=== PATIENT | male | born 1990 | race African-American/Black ===

== ENCOUNTER 2017-12-30 20:25 | Emergency (ER) | payer SELFPAY ==
[~2017-12-30] VITALS: Ht 188 cm; Wt 73.0 kg
[2017-12-30] MEDS ORDERED: ACETAMINOPHEN 500MG TABLET PO ONE (22:30)
[2017-12-30] MEDS ORDERED: IBUPROFEN 600MG TABLET PO ONE (22:30)
[2017-12-30 22:39] VITALS: BP 134/69
== END 2017-12-30 22:40 | disposition home or self-care (01) ==
LOC: ER 20:56
DX: S86.812A Strain of other muscle(s) and tendon(s) at lower leg level, left leg, initial encounter (principal); S86.811A Strain of other muscle(s) and tendon(s) at lower leg level, right leg, initial encounter; V89.2XXA Person injured in unspecified motor-vehicle accident, traffic, initial encounter; Y93.89 Activity, other specified; Y92.89 Other specified places as the place of occurrence of the external cause; Y99.8 Other external cause status
CPT/HCPCS: 99283